=== PATIENT | female | born 1995 | race Caucasian/White ===

== ENCOUNTER → 2017-06-13 | Outpatient (REF) | payer OTHER, MEDICAID ==
[2017-06-13 22:08] LABS: CHLAMYDIA DNA AMPLIFICATION NEGATIVE (NEGATIVE); GC DNA AMPLIFICATION NEGATIVE (NEGATIVE)
== END ==
LOC: M LAB REF 17:22
DX: Z00.01 Encounter for general adult medical examination with abnormal findings (principal)

== ENCOUNTER → 2017-06-16 | Outpatient (REF) | payer OTHER, MEDICAID ==
[2017-06-16 13:24] LABS: BASO # 0.1 10^3/uL (0.0-0.2); BASO % 0.7 % (0.0-1.0); EOS # 0.9 10^3/uL (0.0-0.50); EOS % 9.3 % (0.0-3.0); HEMATOCRIT 42.4 % (36.0-47.0); HEMOGLOBIN 14.2 g/dl (12.0-16.0); IMMATURE GRANULOCYTE % 0.3 % (0-0); LYMPH # 2.4 10^3/uL (1.5-6.5); LYMPH % 25.4 % (24.0-44.0); MEAN CORPUSCULAR HEMOGLOBIN 30.9 pg (27.0-33.0); MEAN CORPUSCULAR HGB CONC 33.5 g/dl (32.0-36.5); MEAN CORPUSCULAR VOLUME 92.4 fl (80.0-96.0); MONO # 0.7 10^3/uL (0.0-0.8); MONO % 7.5 % (0.0-5.0); NEUTROPHILS # 5.4 10^3/uL (1.8-7.7); NEUTROPHILS % 56.8 % (36.0-66.0); PLATELET COUNT, AUTOMATED 312 10^3/uL (150-450); RED BLOOD COUNT 4.59 10^6/uL (4.00-5.40); RED CELL DISTRIBUTION WIDTH 13.1 % (11.5-14.5); WHITE BLOOD COUNT 9.6 10^3/uL (4.0-10.0)
[2017-06-16 13:44] LABS: ALBUMIN 4.1 GM/DL (3.2-5.2); ALBUMIN/GLOBULIN RATIO 1.21 (1.00-1.93); ALKALINE PHOSPHATASE 64 U/L (45-117); ALT/SGPT 20 U/L (12-78); ANION GAP 8 MEQ/L (8-16); AST/SGOT 13 U/L (7-37); BILIRUBIN,TOTAL 0.2 MG/DL (0.2-1.0); BLOOD UREA NITROGEN 11 MG/DL (7-18); CALCIUM LEVEL 9.1 MG/DL (8.5-10.1); CARBON DIOXIDE LEVEL 25 MEQ/L (21-32); CHLORIDE LEVEL 109 MEQ/L (98-107); CREATININE FOR GFR 0.72 MG/DL (0.55-1.02); FERRITIN 37 NG/ML (8-252); GLOMERULAR FILTRATION RATE > 60.0 (>60); GLUCOSE, FASTING 72 MG/DL (70-105); IRON (FE) 56 UG/DL (50-170); POTASSIUM SERUM 4.1 MEQ/L (3.5-5.1); SODIUM LEVEL 142 MEQ/L (136-145); TOTAL PROTEIN 7.5 GM/DL (6.4-8.2)
== END ==
LOC: M LAB REF 12:11
DX: R42 Dizziness and giddiness (principal); E61.1 Iron deficiency
CPT/HCPCS: 83540

== ENCOUNTER → 2018-10-02 | Outpatient (REF) | payer OTHER, MEDICAID ==
[2018-10-02 21:45] LABS: CHLAMYDIA DNA AMPLIFICATION NEGATIVE (NEGATIVE); GC DNA AMPLIFICATION NEGATIVE (NEGATIVE)
[2018-10-05 10:28] LABS: HEPATITIS B SURFACE ANTIBODY NEGATIVE (POSITIVE); HEPATITIS B SURFACE ANTIGEN NEGATIVE (NEGATIVE); HIV 1&2 SCREEN CENTAUR NEGATIVE (NEGATIVE)
== END ==
LOC: M LAB REF 18:26
PROVIDERS: ATTEND Family Medicine Addiction Medicine
DX: Z20.2 Contact with and (suspected) exposure to infections with a predominantly sexual mode of transmission (principal)

== ENCOUNTER → 2018-10-28 | Outpatient (REF) | payer OTHER, MEDICAID ==
[~2018-10-28] MED LIST: HYDR-3363; SERT-138
[2018-10-28 18:09] LABS: BASO # 0.1 10^3/uL (0.0-0.2); BASO % 0.7 % (0.0-1.0); EOS # 0.1 10^3/uL (0.0-0.50); EOS % 1.9 % (0.0-3.0); HEMATOCRIT 44.1 % (36.0-47.0); HEMOGLOBIN 14.3 g/dl (12.0-15.5); LYMPH # 2.2 10^3/uL (1.5-6.5); LYMPH % 31.7 % (24.0-44.0); MEAN CORPUSCULAR HEMOGLOBIN 31.2 pg (27.0-33.0); MEAN CORPUSCULAR HGB CONC 32.4 g/dl (32.0-36.5); MEAN CORPUSCULAR VOLUME 96.3 fl (80.0-96.0); MONO # 0.4 10^3/uL (0.0-0.8); MONO % 6.4 % (0.0-5.0); NEUTROPHILS # 4.1 10^3/uL (1.8-7.7); PLATELET COUNT, AUTOMATED 339 10^3/uL (150-450); RED BLOOD COUNT 4.58 10^6/uL (4.00-5.40); WHITE BLOOD COUNT 6.9 10^3/uL (4.0-10.0)
[2018-10-28 18:14] LABS: ALT/SGPT 18 U/L (12-78); BILIRUBIN,TOTAL 0.6 MG/DL (0.2-1.0); BLOOD UREA NITROGEN 12 MG/DL (7-18); CALCIUM LEVEL 9.1 MG/DL (8.5-10.1); CARBON DIOXIDE LEVEL 29 MEQ/L (21-32); CHLORIDE LEVEL 108 MEQ/L (98-107); CREATININE FOR GFR 0.93 MG/DL (0.55-1.30); GLOMERULAR FILTRATION RATE > 60.0 (>60); GLUCOSE, FASTING 83 MG/DL (70-100); POTASSIUM SERUM 4.1 MEQ/L (3.5-5.1); SODIUM LEVEL 142 MEQ/L (136-145); TOTAL PROTEIN 7.8 GM/DL (6.4-8.2)
== END ==
LOC: M LAB REF 17:45
PROVIDERS: ATTEND Nurse Practitioner Family
DX: Z12.4 Encounter for screening for malignant neoplasm of cervix (principal); R10.10 Upper abdominal pain, unspecified

== ENCOUNTER 2018-11-04 13:15 | Emergency (ER) | payer MEDICAID, OTHER ==
[~2018-11-04] VITALS: Ht 160 cm; Wt 68.2 kg
[2018-11-04] MEDS ORDERED: HYDR-3363 (13:26)
[2018-11-04] MEDS ORDERED: SERT-138 (13:26)
[2018-11-04 16:22] LABS: HEMATOCRIT 46.9 % (36.0-47.0); HEMOGLOBIN 15.4 g/dl (12.0-15.5); MEAN CORPUSCULAR HEMOGLOBIN 31.2 pg (27.0-33.0); MEAN CORPUSCULAR HGB CONC 32.8 g/dl (32.0-36.5); MEAN CORPUSCULAR VOLUME 94.9 fl (80.0-96.0); PLATELET COUNT, AUTOMATED 325 10^3/uL (150-450); RED BLOOD COUNT 4.94 10^6/uL (4.00-5.40); WHITE BLOOD COUNT 10.4 10^3/uL (4.0-10.0)
[2018-11-04] MEDS ORDERED: NS 1,000 ML IV ONE (16:30)
[2018-11-04 16:55] LABS: FREE THYROXINE INDEX 3.6 % (1.3-4.8); THYROID STIMULATING HORMONE 1.11 uIU/ML (0.358-3.740); THYROXINE (T4) 10.1 UG/DL (4.5-12.0)
--- NOTE | 2018-11-04 17:36 | REP ---
Clinical: Syncope . Comparison: None . Technique: PA and lateral. Findings: The mediastinum and cardiac silhouette are normal. The lung sands are clear and without acute consolidation, effusion, or pneumothorax. The skeletal structures are intact and normal. Impression: 1. No acute cardiopulmonary process. Electronically Signed by Zoltan King MD 11/04/2018 05:27 P
[2018-11-04 18:28] VITALS: BP 108/57
--- NOTE | 2018-11-04 19:58 | ECGEPIP ---
[facility] - ED Test Date: 2018-11-04 Pat Name: BORIS MONSALVE Department: Room: - Gender: Female Technical Project Manager: : 1995 Requested By: BRITTNY JAMA PA-C. Order Number: [id number] Reading MD: Jacobo Lees Measurements Intervals Anthony Rate: 54 P: 63 OR: 129 QRS: 69 QRSD: 91 T: 54 QT: 394 QTc: 374 Interpretive Statements SINUS BRADYCARDIA WITH sinus arrythmia Comparison tracing not on file Electronically Signed on 11-04-2018 19:58:21 EDT by Jacobo Lees
== END 2018-11-04 18:46 | disposition home or self-care (01) ==
LOC: M ED 13:15
DX: I95.1 Orthostatic hypotension (principal); E86.0 Dehydration; R00.1 Bradycardia, unspecified; F41.9 Anxiety disorder, unspecified; F32.9 Major depressive disorder, single episode, unspecified; Z79.899 Other long term (current) drug therapy

== ENCOUNTER 2019-02-11 15:30 | Emergency (ER) | payer OTHER ==
[2019-02-11 16:11] LABS: BASO # 0.1 10^3/uL (0.0-0.2); BASO % 0.6 % (0.0-1.0); EOS # 0.4 10^3/uL (0.0-0.5); EOS % 4.9 % (0.0-3.0); HEMATOCRIT 40.1 % (36.0-47.0); HEMOGLOBIN 12.9 g/dl (12.0-15.5); LYMPH # 2.2 10^3/uL (1.5-5.0); LYMPH % 27.3 % (24.0-44.0); MEAN CORPUSCULAR HEMOGLOBIN 30.4 pg (27.0-33.0); MEAN CORPUSCULAR HGB CONC 32.2 g/dl (32.0-36.5); MEAN CORPUSCULAR VOLUME 94.4 fl (80.0-96.0); MONO # 0.6 10^3/uL (0.0-0.8); MONO % 7.2 % (0.0-5.0); NEUTROPHILS # 4.8 10^3/uL (1.5-8.5); NEUTROPHILS % 59.7 % (36.0-66.0); PLATELET COUNT, AUTOMATED 265 10^3/uL (150-450); RED BLOOD COUNT 4.25 10^6/uL (4.00-5.40)
[2019-02-11 16:36] LABS: ALBUMIN 3.6 GM/DL (3.2-5.2); ALT/SGPT 17 U/L (12-78); BILIRUBIN,DIRECT 0.1 MG/DL (0.0-0.2); BILIRUBIN,TOTAL 0.6 MG/DL (0.2-1.0); BLOOD UREA NITROGEN 10 MG/DL (7-18); C REACTIVE PROTEIN QUANTITATIV < 0.30 MG/DL (0.00-0.30); CALCIUM LEVEL 8.8 MG/DL (8.5-10.1); CARBON DIOXIDE LEVEL 28 MEQ/L (21-32); CHLORIDE LEVEL 109 MEQ/L (98-107); CREATININE FOR GFR 0.72 MG/DL (0.55-1.30); GLOMERULAR FILTRATION RATE > 60.0 (>60); GLUCOSE, FASTING 74 MG/DL (70-100); HCG, SERUM QUANTITATIVE < 1.0 MIU/ML; SODIUM LEVEL 140 MEQ/L (136-145); THYROID STIMULATING HORMONE 0.896 uIU/ML (0.358-3.740); TOTAL PROTEIN 6.8 GM/DL (6.4-8.2)
[2019-02-11] MEDS ORDERED: NS 1,000 ML IV ONE (17:00)
[2019-02-11] MEDS ORDERED: FLUDROCORTISONE ACETATE 0.1 MG TAB PO ONE (17:30)
[2019-02-11 17:33] LABS: AMPHETAMINES LEVEL URINE NEGATIVE (NEGATIVE); BARBITURATES URINE NEGATIVE (NEGATIVE); BENZODIAZEPINES URINE NEGATIVE (NEGATIVE); CANNABINOIDS URINE NEGATIVE (NEGATIVE); COCAINE METABOLITE URINE NEGATIVE (NEGATIVE); METHADONE URINE NEGATIVE (NEGATIVE); OPIATES URINE NEGATIVE (NEGATIVE); PHENCYCLIDINE URINE NEGATIVE (NEGATIVE)
[2019-02-11] MEDS ORDERED: FLUD0.1T PO (19:14)
[2019-02-11 19:30] VITALS: BP 102/74
--- NOTE | 2019-02-12 07:11 | ECGEPIP ---
[facility] - ED Test Date: 2019-02-11 Pat Name: BORIS MONSALVE Department: Room: - Gender: Female Welder/Fitter: brian : 1995 Requested By: Juan Rose Order Number: [id number] Reading MD: Juan Johnson Measurements Intervals E[place] Rate: 62 P: 59 LA: 136 QRS: 48 QRSD: 89 T: 40 QT: 395 QTc: 404 Interpretive Statements SINUS RHYTHM WITH SINUS ARRHYTHMIA BENIGN EARLY REPOLARIZATION SIMILAR TO 11/04/18 Electronically Signed on 02-12-2019 7:11:05 EDT by Juan Johnson
== END 2019-02-11 20:04 | disposition home or self-care (01) ==
LOC: M ED 15:30 → EDBD 15:30 → M ED 20:04
DX: I95.1 Orthostatic hypotension (principal); G90.9 Disorder of the autonomic nervous system, unspecified; F41.9 Anxiety disorder, unspecified

== ENCOUNTER → 2019-05-03 | Outpatient (REF) | payer OTHER, MEDICAID ==
[~2019-05-03] MED LIST changes: +FLUD0.1T PO
[2019-05-03 20:25] LABS: BASO # 0.1 10^3/uL (0.0-0.2); BASO % 0.8 % (0.0-1.0); EOS # 0.3 10^3/uL (0.0-0.5); EOS % 2.4 % (0.0-3.0); HEMATOCRIT 43.6 % (36.0-47.0); HEMOGLOBIN 13.8 g/dl (12.0-15.5); LYMPH # 2.2 10^3/uL (1.5-5.0); LYMPH % 20.3 % (24.0-44.0); MEAN CORPUSCULAR HGB CONC 31.7 g/dl (32.0-36.5); MONO # 0.7 10^3/uL (0.0-0.8); MONO % 6.2 % (0.0-5.0); NEUTROPHILS # 7.6 10^3/uL (1.5-8.5); PLATELET COUNT, AUTOMATED 315 10^3/uL (150-450); RED BLOOD COUNT 4.45 10^6/uL (4.00-5.40); WHITE BLOOD COUNT 10.8 10^3/uL (4.0-10.0)
[2019-05-03 20:31] LABS: HCG, SERUM QUALITATIVE NEGATIVE (NEGATIVE)
[2019-05-03 20:37] LABS: ALBUMIN 3.9 GM/DL (3.2-5.2); ALT/SGPT 21 U/L (12-78); BILIRUBIN,TOTAL 0.3 MG/DL (0.2-1.0); BLOOD UREA NITROGEN 16 MG/DL (7-18); CARBON DIOXIDE LEVEL 28 MEQ/L (21-32); CHLORIDE LEVEL 108 MEQ/L (98-107); CREATININE FOR GFR 0.81 MG/DL (0.55-1.30); GLOMERULAR FILTRATION RATE > 60.0 (>60); GLUCOSE, FASTING 78 MG/DL (70-100); POTASSIUM SERUM 3.9 MEQ/L (3.5-5.1); SODIUM LEVEL 142 MEQ/L (136-145); THYROID STIMULATING HORMONE 0.947 uIU/ML (0.358-3.740); TOTAL PROTEIN 7.3 GM/DL (6.4-8.2)
[2019-05-03 21:18] LABS: HIV 1&2 SCREEN CENTAUR NEGATIVE (NEGATIVE)
[2019-05-04 09:46] LABS: CHLAMYDIA DNA AMPLIFICATION NEGATIVE (NEGATIVE); GC DNA AMPLIFICATION NEGATIVE (NEGATIVE)
== END ==
LOC: M LAB REF 18:55
PROVIDERS: ATTEND Nurse Practitioner Adult Health
DX: N92.1 Excessive and frequent menstruation with irregular cycle (principal)

== ENCOUNTER → 2020-08-09 | Outpatient (CLI) | payer OTHER, MEDICAID ==
[2020-08-09 12:10] LABS: HEMATOCRIT 34.7 % (36.0-47.0); MEAN CORPUSCULAR HEMOGLOBIN 30.2 pg (27.0-33.0); MEAN CORPUSCULAR HGB CONC 31.7 g/dl (32.0-36.5); MEAN CORPUSCULAR VOLUME 95.3 fl (80.0-96.0); PLATELET COUNT, AUTOMATED 326 10^3/uL (150-450); RED BLOOD COUNT 3.64 10^6/uL (4.00-5.40); WHITE BLOOD COUNT 13.9 10^3/uL (4.0-10.0)
== END ==
LOC: M LAB 10:18
PROVIDERS: ATTEND Advanced Practice Midwife
DX: Z34.82 Encounter for supervision of other normal pregnancy, second trimester (principal); Z3A.00 Weeks of gestation of pregnancy not specified

== ENCOUNTER → 2020-10-12 | Outpatient (REF) | payer OTHER, MEDICAID | LOC: M LAB REF 16:20 | PROVIDERS: ATTEND Advanced Practice Midwife | DX: Z34.83 Encounter for supervision of other normal pregnancy, third trimester (principal) ==

== ENCOUNTER 2021-02-04 09:11 | Emergency (ER) | payer MEDICAID, OTHER ==
[~2021-02-04] VITALS: Ht 160 cm; Wt 72.1 kg
[2021-02-04] MEDS ORDERED: ONDANSETRON 4MG/2ML VIAL IV ONE (10:45)
[2021-02-04] MEDS ORDERED: NS 1,000 ML IV ONE (10:45)
[2021-02-04 11:06] LABS: BASO % 0.2 % (0.0-1.0); HEMATOCRIT 43.6 % (36.0-47.0); HEMOGLOBIN 13.7 g/dl (12.0-15.5); LYMPH # 0.8 10^3/uL (1.5-5.0); LYMPH % 4.9 % (24.0-44.0); MEAN CORPUSCULAR HEMOGLOBIN 27.4 pg (27.0-33.0); MEAN CORPUSCULAR HGB CONC 31.4 g/dl (32.0-36.5); MEAN CORPUSCULAR VOLUME 87.2 fl (80.0-96.0); MONO # 0.7 10^3/uL (0.0-0.8); MONO % 3.9 % (2.0-8.0); NEUTROPHILS # 14.9 10^3/uL (1.5-8.5); NEUTROPHILS % 90.5 % (36.0-66.0); PLATELET COUNT, AUTOMATED 378 10^3/uL (150-450); WHITE BLOOD COUNT 16.5 10^3/uL (4.0-10.0)
[2021-02-04 11:40] LABS: ALBUMIN 3.9 GM/DL (3.2-5.2); ALT/SGPT 38 U/L (12-78); BILIRUBIN,DIRECT 0.2 MG/DL (0.0-0.2); BILIRUBIN,TOTAL 0.5 MG/DL (0.2-1.0); BLOOD UREA NITROGEN 12 MG/DL (7-18); CALCIUM LEVEL 9.2 MG/DL (8.5-10.1); CARBON DIOXIDE LEVEL 26 MEQ/L (21-32); CHLORIDE LEVEL 108 MEQ/L (98-107); CREATININE FOR GFR 0.74 MG/DL (0.55-1.30); ETHYL ALCOHOL (ETHANOL) < 0.003 % (0.000-0.010); GLOMERULAR FILTRATION RATE > 60.0 (>60); GLUCOSE, FASTING 113 MG/DL (70-100); POTASSIUM SERUM 4.1 MEQ/L (3.5-5.1); SODIUM LEVEL 140 MEQ/L (136-145); TOTAL PROTEIN 7.7 GM/DL (6.4-8.2)
[2021-02-04 12:02] LABS: LIPASE 140 U/L (73-393)
[2021-02-04 12:47] VITALS: BP 124/62
[2021-02-04] MEDS ORDERED: ONDA4TAB6 PO (13:46)
[2021-02-21] MEDS ORDERED: PREN1CHW PO (13:28)
== END 2021-02-04 14:18 | disposition home or self-care (01) ==
LOC: M ED 09:11
DX: K80.20 Calculus of gallbladder without cholecystitis without obstruction (principal); F33.9 Major depressive disorder, recurrent, unspecified; F41.9 Anxiety disorder, unspecified
CPT/HCPCS: 76705; 80048; 80076; 81001; 82077; 83690; 84702; 85025; 87086; 96361; 96374; 99284; J2405

== ENCOUNTER → 2021-02-21 | Outpatient (CLI) | payer OTHER ==
[~2021-02-21] MED LIST changes: +ONDA4TAB6 PO; +PREN1CHW PO
== END ==
LOC: M LABSMTC 10:20
PROVIDERS: ATTEND Anesthesiology
DX: Z01.818 Encounter for other preprocedural examination (principal); Z11.52 Encounter for screening for COVID-19

== ENCOUNTER 2021-02-26 10:39 | Day surgery (SDC) | payer OTHER ==
[~2021-02-26] VITALS: Ht 160 cm; Wt 70.8 kg
[~2021-02-26 10:39] MED LIST changes: +LR 1,000 ML IV ONE
[2021-02-26] MEDS ORDERED: dexameTHASONE 4 MG/ML 1ML VIAL (J1100 PER 1MG) As Ordered ONE (11:35)
[2021-02-26] MEDS ORDERED: fentaNYL 100 MCG/2 ML INJECTION (J3010) As Ordered ONE ×2 (11:35→13:05)
[2021-02-26] MEDS ORDERED: MIDAZOLAM INJ 2MG/2ML VIAL (J2250 PER 1MG) As Ordered ONE (11:35)
[2021-02-26] MEDS ORDERED: ONDANSETRON 4MG/2ML VIAL As Ordered ONE (11:35)
[2021-02-26] MEDS ORDERED: ACETAMINOPHEN 1000MG 100ML IV BTL (OFIRMEV) (J0131 PER 10MG) As Ordered ONE (11:36)
[2021-02-26] MEDS ORDERED: propofoL 200 MG/20 ML VIAL As Ordered ONE (11:36)
[2021-02-26] MEDS ORDERED: SUGAMMADEX SODIUM 500 MG/5 ML VIAL (BRIDION) As Ordered ONE (11:36)
[2021-02-26] MEDS ORDERED: LIDOCAINE 2% 100MG/5ML SDV (FOR ANES.) As Ordered ONE (11:36)
[2021-02-26] MEDS ORDERED: ROCURONIUM BROMIDE 50 MG/5 ML VIAL As Ordered ONE (11:36)
[2021-02-26] MEDS ORDERED: BUPIVACAINE/EPIN 0.25% 30 ML VIAL As Ordered ONE (12:13)
[2021-02-26] MEDS ORDERED: PHENYLephrine 500MCG 5ML (100MCG/ML) SYRINGE As Ordered ONE (12:46)
[2021-02-26] MEDS ORDERED: LR 1,000 ML IV SCH (13:50)
[2021-02-26] MEDS ORDERED: ONDANSETRON 4MG/2ML VIAL IV PRN (13:50)
[2021-02-26] MEDS ORDERED: fentaNYL 100 MCG/2 ML INJECTION (J3010) IV PRN (13:50)
[2021-02-26] MEDS ORDERED: oxyCODONE 5MG TAB PO PRN (13:50)
[2021-02-26] MEDS ORDERED: NORCO, ANEXSIA 5/325MG TABLET (HYDROcodone/ACETAMINOPHEN) PO PRN (13:50)
--- NOTE | 2021-02-26 15:43 | RO ---
OPERATIVE NOTE DATE OF OPERATION: 02/26/2021 PREOPERATIVE DIAGNOSIS: Symptomatic cholelithiasis. POSTOPERATIVE DIAGNOSIS: Symptomatic cholelithiasis. PROCEDURE: Robotic cholecystectomy. SURGEON: Harrison Polanco DO ASSIST: Tia Ramirez ANESTHESIA: General. EBL: 5 mL. COMPLICATIONS: None. INDICATIONS FOR PROCEDURE: The patient is a 25-year-old female who presents with right upper quadrant pain and was found to have symptomatic cholelithiasis. Recommendation was to proceed with robotic cholecystectomy. Risks and benefits of the procedure, not limited to but including bleeding, infection, hernia, damage to surrounding structures, and need for further surgery were discussed in detail with the patient. Informed consent was obtained and procedure was planned. PROCEDURE: The patient was brought back to operating room 7. After sufficient sedation, the abdomen was sterilely prepped and draped. Next, time out was done to confirm proper patient and proper procedure. Following that, an 8 mm incision was made in left upper quadrant, Veress needle was inserted, and the abdomen was insufflated to 15 mmHg. The Veress needle was removed and an 8 mm Optiview port was used to gain access to the abdomen. Once the abdomen was entered, three more ports were placed, in the middle upper abdomen and one in right upper quadrant. Robot was docked to the ports. From the console, the fundus of the gallbladder was elevated up towards the right shoulder. Cystic duct and cystic artery were both easily identified, they were both doubly clipped and cut. The gallbladder was then removed from the gallbladder fossa using electrocautery. The gallbladder was placed inside of a 5 mm Endo Catch bag, and brought out through the right lateral port site. Once the gallbladder was removed the abdomen was examined to confirm hemostasis. The abdomen was desufflated. The skin incisions were closed with 4-0 Vicryl subcuticular sutures. The abdomen was cleaned and dried. Steri-Strips, 4 x 4, and tape were applied. This ended the procedure.
[2021-02-26 16:59] VITALS: BP 135/77
== END 2021-02-26 17:15 | disposition home or self-care (01) ==
LOC: M SDC 10:39
PROVIDERS: ATTEND Surgery
DX: K80.20 Calculus of gallbladder without cholecystitis without obstruction (principal); Z79.899 Other long term (current) drug therapy
CPT/HCPCS: 47562; 81025; 88304; J0131; J1100; J2250; J2370; J2405; J3010

== ENCOUNTER 2021-11-10 13:07 | Inpatient (IN) | payer OTHER ==
[~2021-11-10] VITALS: Ht 157.5 cm; Wt 73.9 kg
[~2021-11-10 13:07] MED LIST changes: -LR 1,000 ML IV ONE
[2021-11-10 13:54] LABS: BASO # 0.1 10^3/uL (0.0-0.2); BASO % 1.2 % (0.0-1.0); EOS # 0.6 10^3/uL (0.0-0.5); EOS % 8.4 % (0.0-3.0); HEMATOCRIT 42.1 % (36.0-47.0); HEMOGLOBIN 13.6 g/dl (12.0-15.5); LYMPH # 1.2 10^3/uL (1.5-5.0); LYMPH % 17.1 % (24.0-44.0); MEAN CORPUSCULAR HGB CONC 32.3 g/dl (32.0-36.5); MEAN CORPUSCULAR VOLUME 92.7 fl (80.0-96.0); MONO # 0.6 10^3/uL (0.0-0.8); MONO % 8.4 % (2.0-8.0); NEUTROPHILS # 4.4 10^3/uL (1.5-8.5); NEUTROPHILS % 64.8 % (36.0-66.0); PLATELET COUNT, AUTOMATED 322 10^3/uL (150-450); RED BLOOD COUNT 4.54 10^6/uL (4.00-5.40); WHITE BLOOD COUNT 6.8 10^3/uL (4.0-10.0)
[2021-11-10 14:21] LABS: BILIRUBIN,DIRECT 3.3 MG/DL (0.0-0.2); BILIRUBIN,TOTAL 4.1 MG/DL (0.2-1.0); TOTAL PROTEIN 7.5 GM/DL (6.4-8.2)
[2021-11-10] MEDS ORDERED: ONDANSETRON 4MG/2ML VIAL IV ONE (14:30)
[2021-11-10] MEDS ORDERED: NS 1,000 ML IV ONE (14:30)
[2021-11-10 14:51] LABS: C REACTIVE PROTEIN QUANTITATIV 0.72 MG/DL (0.00-0.30)
[2021-11-10] MEDS ORDERED: MORPHINE 2 MG/ML 1ML VIAL IV ONE ×2 (14:55→18:55)
[2021-11-10 14:59] LABS: ERYTHROCYTE SEDIMENTATION RATE 10 mm/hr (0-20)
[2021-11-10 16:06] LABS: RSV AMPLIFICATION NEGATIVE (NEGATIVE)
[2021-11-10] MEDS ORDERED: PIPERACILLIN/TAZOBACTAM SOD 3.375 GM in D5W MINI-BAG PLUS 50 ML IV ONE (19:05)
[2021-11-10] MEDS ORDERED: HOME MED LIST COMPLETE! XX SCH (19:25)
[2021-11-10] MEDS: NS 1,000 ML IV SCH (19:28)
[2021-11-10] MEDS ORDERED: ACETAMINOPHEN TAB 650MG DOSE (2X325MG) PO PRN (20:55)
[2021-11-10 22:25] VITALS: BP 115/76
[2021-11-10 22:33] VITALS: BP 115/76
[2021-11-10] MEDS: MORPHINE 2 MG/ML 1ML VIAL IV PRN (22:42)
[2021-11-11] MEDS: MORPHINE 2 MG/ML 1ML VIAL IV PRN (02:45)
[2021-11-11 05:31] VITALS: BP 113/75
[2021-11-11] MEDS: NS 1,000 ML IV SCH ×2 (05:43→10:40)
[2021-11-11] MEDS ORDERED: HEPARIN SOD (PORCINE) 5000UNITS/ML 1ML VIAL/SYRINGE SC SCH (06:00)
[2021-11-11] MEDS ORDERED: fentaNYL 100 MCG/2 ML INJECTION As Ordered ONE (06:52)
[2021-11-11] MEDS ORDERED: MIDAZOLAM INJ 2MG/2ML VIAL (J2250 PER 1MG) As Ordered ONE (06:52)
[2021-11-11] MEDS ORDERED: propofoL 200 MG/20 ML VIAL As Ordered ONE (06:53)
[2021-11-11] MEDS ORDERED: LIDOCAINE 2% 100MG/5ML SDV (FOR ANES.) As Ordered ONE (06:53)
[2021-11-11] MEDS ORDERED: ONDANSETRON 4MG/2ML VIAL As Ordered ONE (06:54)
[2021-11-11] MEDS ORDERED: SUGAMMADEX SODIUM 500 MG/5 ML VIAL (BRIDION) As Ordered ONE (06:54)
[2021-11-11] MEDS ORDERED: dexameTHASONE 4 MG/ML 1ML VIAL (J1100 PER 1MG) As Ordered ONE (06:54)
[2021-11-11] MEDS ORDERED: ROCURONIUM BROMIDE 50 MG/5 ML VIAL As Ordered ONE (06:54)
[2021-11-11 07:49] LABS: HEMATOCRIT 40.8 % (36.0-47.0); HEMOGLOBIN 12.8 g/dl (12.0-15.5); MEAN CORPUSCULAR HEMOGLOBIN 29.9 pg (27.0-33.0); MEAN CORPUSCULAR HGB CONC 31.4 g/dl (32.0-36.5); MEAN CORPUSCULAR VOLUME 95.3 fl (80.0-96.0); PLATELET COUNT, AUTOMATED 301 10^3/uL (150-450); RED BLOOD COUNT 4.28 10^6/uL (4.00-5.40); WHITE BLOOD COUNT 7.6 10^3/uL (4.0-10.0)
[2021-11-11] MEDS ORDERED: PIPERACILLIN/TAZOBACTAM SOD 3.375 GM in D5W MINI-BAG PLUS 50 ML IV SCH (08:00)
[2021-11-11 08:19] LABS: ALBUMIN 3.4 GM/DL (3.2-5.2); ALT/SGPT 659 U/L (12-78); BILIRUBIN,TOTAL 4.5 MG/DL (0.2-1.0); BLOOD UREA NITROGEN 7 MG/DL (7-18); CALCIUM LEVEL 8.9 MG/DL (8.5-10.1); CARBON DIOXIDE LEVEL 26 MEQ/L (21-32); CHLORIDE LEVEL 112 MEQ/L (98-107); CREATININE FOR GFR 0.75 MG/DL (0.55-1.30); GLOMERULAR FILTRATION RATE > 60.0 (>60); GLUCOSE, FASTING 78 MG/DL (70-100); POTASSIUM SERUM 4.1 MEQ/L (3.5-5.1); SODIUM LEVEL 144 MEQ/L (136-145); TOTAL PROTEIN 6.7 GM/DL (6.4-8.2)
[2021-11-11] MEDS ORDERED: ISOVUE-300 61% 50ML VIAL As Ordered ONE (08:37)
[2021-11-11] MEDS ORDERED: oxyCODONE 5MG TAB PO PRN ×2 (09:45→11:00)
[2021-11-11] MEDS ORDERED: ONDANSETRON 4MG/2ML VIAL IV PRN (09:45)
[2021-11-11] MEDS ORDERED: LR 1,000 ML IV SCH (09:45)
[2021-11-11] MEDS ORDERED: fentaNYL 100 MCG/2 ML INJECTION IV PRN (09:45)
[2021-11-11 10:30] VITALS: BP 108/70
[2021-11-11] MEDS: PIPERACILLIN/TAZOBACTAM SOD 3.375 GM in D5W MINI-BAG PLUS 50 ML IV SCH ×3 (10:41→20:47)
[2021-11-11 14:00] VITALS: BP 100/56
[2021-11-11 22:00] VITALS: BP 101/54
[2021-11-12] MEDS: PIPERACILLIN/TAZOBACTAM SOD 3.375 GM in D5W MINI-BAG PLUS 50 ML IV SCH ×2 (03:04→08:38)
[2021-11-12 05:34] VITALS: BP 103/62
[2021-11-12 08:26] LABS: BASO # 0.1 10^3/uL (0.0-0.2); BASO % 0.7 % (0.0-1.0); EOS # 0.3 10^3/uL (0.0-0.5); EOS % 4.3 % (0.0-3.0); HEMOGLOBIN 11.4 g/dl (12.0-15.5); LYMPH # 2.3 10^3/uL (1.5-5.0); MEAN CORPUSCULAR HEMOGLOBIN 29.9 pg (27.0-33.0); MEAN CORPUSCULAR HGB CONC 31.7 g/dl (32.0-36.5); MEAN CORPUSCULAR VOLUME 94.5 fl (80.0-96.0); MONO # 0.5 10^3/uL (0.0-0.8); MONO % 7.7 % (2.0-8.0); NEUTROPHILS # 3.8 10^3/uL (1.5-8.5); PLATELET COUNT, AUTOMATED 274 10^3/uL (150-450); RED BLOOD COUNT 3.81 10^6/uL (4.00-5.40)
[2021-11-12 08:43] LABS: ALBUMIN 3.1 GM/DL (3.2-5.2); ALT/SGPT 433 U/L (12-78); BILIRUBIN,TOTAL 1.3 MG/DL (0.2-1.0); BLOOD UREA NITROGEN 7 MG/DL (7-18); CARBON DIOXIDE LEVEL 26 MEQ/L (21-32); CHLORIDE LEVEL 110 MEQ/L (98-107); CREATININE FOR GFR 0.82 MG/DL (0.55-1.30); GLOMERULAR FILTRATION RATE > 60.0 (>60); GLUCOSE, FASTING 110 MG/DL (70-100); POTASSIUM SERUM 3.6 MEQ/L (3.5-5.1); SODIUM LEVEL 141 MEQ/L (136-145); TOTAL PROTEIN 6.7 GM/DL (6.4-8.2)
== END 2021-11-12 14:15 | disposition home or self-care (01) ==
LOC: M ED 13:07 → M ED INP 20:51 → ENRESERV 21:44 → M MS5PR 22:25
PROVIDERS: ADMIT Family Medicine; ATTEND Internal Medicine Nephrology
PROC: 0FC98ZZ Extirpation of Matter from Common Bile Duct, Via Natural or Artificial Opening Endoscopic (ICD-10-PCS; principal; 2021-11-11 09:30)
DX: K80.50 Calculus of bile duct without cholangitis or cholecystitis without obstruction (principal); R17 Unspecified jaundice; R10.9 Unspecified abdominal pain; Z90.49 Acquired absence of other specified parts of digestive tract

== ENCOUNTER → 2022-07-18 | Outpatient (REF) | payer OTHER ==
[2022-07-18 17:25] LABS: BASO # 0.1 10^3/uL (0.0-0.2); EOS # 0.6 10^3/uL (0.0-0.5); EOS % 7.5 % (0.0-3.0); HEMATOCRIT 41.9 % (36.0-47.0); HEMOGLOBIN 13.2 g/dl (12.0-15.5); LYMPH # 2.8 10^3/uL (1.5-5.0); LYMPH % 33.3 % (24.0-44.0); MEAN CORPUSCULAR HGB CONC 31.5 g/dl (32.0-36.5); MEAN CORPUSCULAR VOLUME 92.1 fl (80.0-96.0); MONO # 0.6 10^3/uL (0.0-0.8); MONO % 7.5 % (2.0-8.0); NEUTROPHILS # 4.2 10^3/uL (1.5-8.5); NEUTROPHILS % 50.5 % (36.0-66.0); PLATELET COUNT, AUTOMATED 353 10^3/uL (150-450); RED BLOOD COUNT 4.55 10^6/uL (4.00-5.40); WHITE BLOOD COUNT 8.3 10^3/uL (4.0-10.0)
[2022-07-18 18:04] LABS: ALBUMIN 4.2 G/DL (3.2-5.2); ALKALINE PHOSPHATASE 74 U/L (46-116); ALT/SGPT 17 U/L (7.0-40); AST/SGOT 16 U/L (<34); BILIRUBIN,TOTAL 0.2 MG/DL (0.3-1.2); BLOOD UREA NITROGEN 8 MG/DL (9-23); CALCIUM LEVEL 9.7 MG/DL (8.5-10.1); CARBON DIOXIDE LEVEL 27 MMOL/L (20-31); CHLORIDE LEVEL 105 MMOL/L (98-107); GLOMERULAR FILTRATION RATE > 60.0 (>60); GLUCOSE, FASTING 76 MG/DL (60-100); POTASSIUM SERUM 4.6 MMOL/L (3.5-5.1); SODIUM LEVEL 139 MMOL/L (136-145); TOTAL PROTEIN 7.2 G/DL (5.7-8.2)
== END ==
LOC: M LAB REF 16:40
PROVIDERS: ATTEND Nurse Practitioner Family
DX: R10.31 Right lower quadrant pain (principal)

== ENCOUNTER → 2022-08-08 | Outpatient (REF) | payer OTHER | LOC: M LAB REF 11:41 | PROVIDERS: ATTEND Nurse Practitioner Family | DX: Z98.890 Other specified postprocedural states (principal) ==

== ENCOUNTER → 2022-09-02 | Outpatient (REF) | payer OTHER ==
[2022-09-02 17:01] LABS: PERCENT SATURATION 14.8 % (13.2-45.0)
[2022-09-02 17:05] LABS: THYROID STIMULATING HORMONE 1.346 uIU/ML (0.55-4.78); TOTAL 25(OH) VITAMIN D 23.6 NG/ML (20.0-100.0)
== END ==
LOC: M LAB REF 16:24
PROVIDERS: ATTEND Pediatrics
DX: E61.1 Iron deficiency (principal); E55.9 Vitamin D deficiency, unspecified; F41.8 Other specified anxiety disorders

== ENCOUNTER → 2022-09-03 | Outpatient (CLI) | payer OTHER | LOC: M RAD 11:55 | PROVIDERS: ATTEND Nurse Practitioner Family | DX: R10.31 Right lower quadrant pain (principal) ==

== ENCOUNTER 2022-10-09 21:22 | Emergency (ER) | payer OTHER ==
[~2022-10-09] VITALS: Ht 160 cm; Wt 75.7 kg
[2022-10-09] MEDS ORDERED: PARO20TA4 PO (21:31)
[2022-10-09] MEDS ORDERED: HYDR-3363 PO (21:31)
[2022-10-10] MEDS ORDERED: ISOVUE-370 76% 100ML VIAL As Ordered ONE (04:16)
[2022-10-10 04:45] LABS: HEMATOCRIT 38.7 % (36.0-47.0); HEMOGLOBIN 12.6 g/dl (12.0-15.5); MEAN CORPUSCULAR HEMOGLOBIN 30.1 pg (27.0-33.0); MEAN CORPUSCULAR HGB CONC 32.6 g/dl (32.0-36.5); MEAN CORPUSCULAR VOLUME 92.4 fl (80.0-96.0); PLATELET COUNT, AUTOMATED 313 10^3/uL (150-450); RED BLOOD COUNT 4.19 10^6/uL (4.00-5.40); WHITE BLOOD COUNT 8.9 10^3/uL (4.0-10.0)
[2022-10-10 05:39] LABS: BLOOD UREA NITROGEN 11 MG/DL (9-23); CALCIUM LEVEL 9.3 MG/DL (8.5-10.1); CARBON DIOXIDE LEVEL 27 MMOL/L (20-31); CHLORIDE LEVEL 106 MMOL/L (98-107); CREATININE FOR GFR 0.84 MG/DL (0.55-1.30); GLOMERULAR FILTRATION RATE > 60.0 (>60); GLUCOSE, FASTING 94 MG/DL (60-100); POTASSIUM SERUM 3.4 MMOL/L (3.5-5.1); SODIUM LEVEL 139 MMOL/L (136-145)
[2022-10-10 05:41] LABS: HCG, SERUM QUALITATIVE NEGATIVE (NEGATIVE)
[2022-10-10 08:07] VITALS: BP 115/67
== END 2022-10-10 08:23 | disposition home or self-care (01) ==
LOC: M ED 21:22
DX: R07.9 Chest pain, unspecified (principal); F41.9 Anxiety disorder, unspecified; G90.A Postural orthostatic tachycardia syndrome [POTS]; Z79.899 Other long term (current) drug therapy
CPT/HCPCS: 71275; 80048; 84703; 85027; 93005; 93041; 94760; 99285; Q9967

== ENCOUNTER → 2023-01-31 | Outpatient (REF) | payer OTHER ==
[~2023-01-31] MED LIST changes: +HYDR-3363 PO; +PARO20TA4 PO
== END ==
LOC: M LAB REF 15:59
PROVIDERS: ATTEND Physician Assistant Medical
DX: B34.9 Viral infection, unspecified (principal); J02.9 Acute pharyngitis, unspecified

== ENCOUNTER → 2023-02-03 | Outpatient (REF) | LOC: M EMP 07:37 | PROVIDERS: ATTEND Family Medicine | DX: Z00.00 Encounter for general adult medical examination without abnormal findings (principal) ==

== ENCOUNTER → 2023-02-04 | Outpatient (REF) | LOC: M EMP 10:27 | PROVIDERS: ATTEND Family Medicine | DX: Z11.52 Encounter for screening for COVID-19 (principal) ==

== ENCOUNTER 2023-03-15 07:27 | Emergency (ER) | payer OTHER ==
[~2023-03-15] VITALS: Ht 160 cm; Wt 72.8 kg
[~2023-03-15 07:27] MED LIST changes: +AMOX500C PO
[2023-03-15 08:30] LABS: BASO # 0.1 10^3/uL (0.0-0.2); BASO % 0.7 % (0.0-1.0); EOS # 0.3 10^3/uL (0.0-0.5); EOS % 3.8 % (0.0-3.0); HEMOGLOBIN 13.4 g/dl (12.0-15.5); LYMPH # 1.5 10^3/uL (1.5-5.0); LYMPH % 20.7 % (24.0-44.0); MEAN CORPUSCULAR HEMOGLOBIN 29.7 pg (27.0-33.0); MEAN CORPUSCULAR HGB CONC 32.7 g/dl (32.0-36.5); MEAN CORPUSCULAR VOLUME 90.9 fl (80.0-96.0); MONO # 0.4 10^3/uL (0.0-0.8); MONO % 5.7 % (2.0-8.0); NEUTROPHILS # 5.1 10^3/uL (1.5-8.5); PLATELET COUNT, AUTOMATED 304 10^3/uL (150-450); RED BLOOD COUNT 4.51 10^6/uL (4.00-5.40); WHITE BLOOD COUNT 7.4 10^3/uL (4.0-10.0)
[2023-03-15 09:02] LABS: BLOOD UREA NITROGEN 10 MG/DL (9-23); CALCIUM LEVEL 9.2 MG/DL (8.5-10.1); CARBON DIOXIDE LEVEL 26 MMOL/L (20-31); CHLORIDE LEVEL 107 MMOL/L (98-107); CK-MB VALUE MASS < 1.0 NG/ML (<3.6); CPK CREATINE PHOSPHOKINASE 43 U/L (34-145); CREATININE FOR GFR 0.72 MG/DL (0.55-1.30); GLOMERULAR FILTRATION RATE > 60.0 (>60); GLUCOSE, FASTING 96 MG/DL (60-100); MB/CK RELATIVE INDEX 2.32 (< OR =4); POTASSIUM SERUM 4.5 MMOL/L (3.5-5.1); SODIUM LEVEL 139 MMOL/L (136-145)
[2023-03-15 09:15] LABS: HCG, SERUM QUALITATIVE NEGATIVE (NEGATIVE)
[2023-03-15] MEDS ORDERED: MECLIZINE 25 MG TABLET PO ONE (11:30)
[2023-03-15] MEDS ORDERED: NS 1,000 ML IV ONE (11:30)
[2023-03-15] MEDS ORDERED: ISOVUE-370 76% 100ML VIAL As Ordered ONE (11:42)
[2023-03-15 12:06] LABS: INR 1.02; PARTIAL THROMBOPLASTIN TIME 31.7 SECONDS (24.8-34.2); PROTHROMBIN TIME 13.1 SECONDS (12.5-14.5)
[2023-03-15 12:17] LABS: CK-MB VALUE MASS < 1.0 NG/ML (<3.6)
[2023-03-15 12:21] LABS: THYROID STIMULATING HORMONE 1.463 uIU/ML (0.55-4.78)
[2023-03-15 12:29] LABS: CPK CREATINE PHOSPHOKINASE 39 U/L (34-145); MB/CK RELATIVE INDEX 2.56 (< OR =4)
[2023-03-15] MEDS ORDERED: MECL-209 PO (13:53)
[2023-03-15 14:05] VITALS: BP 111/68; TEMP 98.8; O2SAT 98
== END 2023-03-15 14:29 | disposition home or self-care (01) ==
LOC: M ED 07:27
DX: R42 Dizziness and giddiness (principal); R07.89 Other chest pain; R53.1 Weakness; G90.A Postural orthostatic tachycardia syndrome [POTS]
CPT/HCPCS: 70450; 71046; 71275; 80048; 82550; 82553; 84443; 84703; 85025; 85610; 85730; 86618; 93005; 99284; Q9967

== ENCOUNTER 2023-03-18 17:01 | Emergency (ER) | payer OTHER ==
[~2023-03-18] VITALS: Ht 160 cm; Wt 73.6 kg
[~2023-03-18 17:01] MED LIST changes: +MECL-209 PO
[2023-03-18] MEDS ORDERED: FLUD0.1T PO (17:13)
[2023-03-18 17:41] LABS: BASO # 0.1 10^3/uL (0.0-0.2); BASO % 0.6 % (0.0-1.0); EOS # 0.5 10^3/uL (0.0-0.5); HEMATOCRIT 42.3 % (36.0-47.0); HEMOGLOBIN 13.7 g/dl (12.0-15.5); LYMPH # 2.5 10^3/uL (1.5-5.0); LYMPH % 25.7 % (24.0-44.0); MEAN CORPUSCULAR HEMOGLOBIN 29.5 pg (27.0-33.0); MEAN CORPUSCULAR HGB CONC 32.4 g/dl (32.0-36.5); MEAN CORPUSCULAR VOLUME 91.2 fl (80.0-96.0); MONO # 0.5 10^3/uL (0.0-0.8); MONO % 5.5 % (2.0-8.0); NEUTROPHILS # 6.1 10^3/uL (1.5-8.5); NEUTROPHILS % 62.9 % (36.0-66.0); PLATELET COUNT, AUTOMATED 327 10^3/uL (150-450); RED BLOOD COUNT 4.64 10^6/uL (4.00-5.40); WHITE BLOOD COUNT 9.7 10^3/uL (4.0-10.0)
[2023-03-18 17:54] LABS: INR 1.03; PROTHROMBIN TIME 13.2 SECONDS (12.5-14.5)
[2023-03-18 17:55] LABS: PARTIAL THROMBOPLASTIN TIME 31.7 SECONDS (24.8-34.2)
[2023-03-18 18:05] LABS: LIPASE 36 U/L (12-53)
[2023-03-18 18:08] LABS: ALKALINE PHOSPHATASE 72 U/L (46-116); ALT/SGPT 14 U/L (7.0-40); AST/SGOT < 8 U/L (<34); BILIRUBIN,DIRECT < 0.1 MG/DL (<0.4); BILIRUBIN,TOTAL 0.2 MG/DL (0.3-1.2); BLOOD UREA NITROGEN 7 MG/DL (9-23); CALCIUM LEVEL 9.6 MG/DL (8.5-10.1); CARBON DIOXIDE LEVEL 27 MMOL/L (20-31); CHLORIDE LEVEL 108 MMOL/L (98-107); CK-MB VALUE MASS < 1.0 NG/ML (<3.6); CPK CREATINE PHOSPHOKINASE 43 U/L (34-145); CREATININE FOR GFR 0.67 MG/DL (0.55-1.30); GLOMERULAR FILTRATION RATE > 60.0 (>60); GLUCOSE, FASTING 100 MG/DL (60-100); MB/CK RELATIVE INDEX 2.32 (< OR =4); POTASSIUM SERUM 3.8 MMOL/L (3.5-5.1); SODIUM LEVEL 141 MMOL/L (136-145); TOTAL PROTEIN 7.2 G/DL (5.7-8.2)
[2023-03-18 18:51] LABS: HCG, SERUM QUALITATIVE NEGATIVE (NEGATIVE)
[2023-03-18] MEDS ORDERED: ALPRAZolam 0.5 MG TAB PO ONE (20:45)
[2023-03-18] MEDS ORDERED: NS 1,000 ML IV ONE (21:00)
[2023-03-18] MEDS ORDERED: KETOROLAC 30 MG/ML 1ML VIAL IV ONE (21:00)
[2023-03-18 22:18] LABS: CK-MB VALUE MASS < 1.0 NG/ML (<3.6)
[2023-03-18 22:20] LABS: CPK CREATINE PHOSPHOKINASE 45 U/L (34-145); MB/CK RELATIVE INDEX 2.22 (< OR =4)
[2023-03-18 23:40] VITALS: BP 106/67; TEMP 97.9; O2SAT 100
== END 2023-03-18 23:46 | disposition home or self-care (01) ==
LOC: M ED 17:01
DX: G90.A Postural orthostatic tachycardia syndrome [POTS] (principal); F41.9 Anxiety disorder, unspecified; Z79.899 Other long term (current) drug therapy
CPT/HCPCS: 80048; 80076; 82550; 82553; 83690; 84703; 85025; 85610; 85730; 93005; 96374; 99284; J1885

== ENCOUNTER → 2023-04-03 | Outpatient (CLI) | payer OTHER | LOC: M EKG 14:38 | PROVIDERS: ATTEND Pediatrics | DX: I95.1 Orthostatic hypotension (principal) ==

== ENCOUNTER 2023-05-22 10:42 | Emergency (ER) | payer OTHER ==
[~2023-05-22] VITALS: Ht 157.5 cm; Wt 75.0 kg
[2023-05-22] MEDS ORDERED: NS 1,000 ML IV ONE (12:35)
[2023-05-22 12:59] LABS: BASO # 0.1 10^3/uL (0.0-0.2); BASO % 0.7 % (0.0-1.0); EOS # 0.3 10^3/uL (0.0-0.5); EOS % 3.7 % (0.0-3.0); HEMATOCRIT 37.8 % (36.0-47.0); HEMOGLOBIN 12.3 g/dl (12.0-15.5); LYMPH # 1.6 10^3/uL (1.5-5.0); LYMPH % 23.6 % (24.0-44.0); MEAN CORPUSCULAR HEMOGLOBIN 30.1 pg (27.0-33.0); MEAN CORPUSCULAR HGB CONC 32.5 g/dl (32.0-36.5); MEAN CORPUSCULAR VOLUME 92.6 fl (80.0-96.0); MONO # 0.5 10^3/uL (0.0-0.8); MONO % 6.5 % (2.0-8.0); NEUTROPHILS # 4.5 10^3/uL (1.5-8.5); NEUTROPHILS % 65.4 % (36.0-66.0); PLATELET COUNT, AUTOMATED 282 10^3/uL (150-450); RED BLOOD COUNT 4.08 10^6/uL (4.00-5.40)
[2023-05-22 13:12] LABS: INR 1.06; PROTHROMBIN TIME 13.5 SECONDS (12.5-14.5)
[2023-05-22 13:15] LABS: D-DIMER QUANT 1.11 ug/mL (<0.5)
[2023-05-22 13:24] LABS: CK-MB VALUE MASS < 1.0 NG/ML (<3.6)
[2023-05-22 13:26] LABS: CPK CREATINE PHOSPHOKINASE 58 U/L (34-145); MB/CK RELATIVE INDEX 1.72 (< OR =4)
[2023-05-22 13:27] LABS: BLOOD UREA NITROGEN 12 MG/DL (9-23); CALCIUM LEVEL 9.3 MG/DL (8.5-10.1); CARBON DIOXIDE LEVEL 26 MMOL/L (20-31); CHLORIDE LEVEL 110 MMOL/L (98-107); CREATININE FOR GFR 0.67 MG/DL (0.55-1.30); GLOMERULAR FILTRATION RATE > 60.0 (>60); GLUCOSE, FASTING 87 MG/DL (60-100); POTASSIUM SERUM 3.9 MMOL/L (3.5-5.1); SODIUM LEVEL 142 MMOL/L (136-145)
[2023-05-22 13:29] LABS: FREE T4 1.07 NG/DL (0.89-1.76)
[2023-05-22 13:30] LABS: RSV AMPLIFICATION NEGATIVE (NEGATIVE)
[2023-05-22] MEDS ORDERED: ISOVUE-370 76% 100ML VIAL As Ordered ONE (14:14)
[2023-05-22 15:09] VITALS: BP 102/70; TEMP 98.5; O2SAT 100
== END 2023-05-22 15:24 | disposition home or self-care (01) ==
LOC: EDBD 10:42 → M ED 10:42
DX: R55 Syncope and collapse (principal); G90.A Postural orthostatic tachycardia syndrome [POTS]; F31.9 Bipolar disorder, unspecified; F32.A Depression, unspecified; F40.10 Social phobia, unspecified
CPT/HCPCS: 70450; 70496; 70498; 71046; 80048; 82550; 82553; 83735; 84439; 84443; 84702; 85025; 85379; 85610; 85730; 87631; 93005; 93041; 94760; 96360; 96361; 99285; Q9967

== ENCOUNTER → 2024-05-18 | Outpatient (REF) | payer OTHER ==
[~2024-05-18] MED LIST changes: +ONDA-282 PO; -ONDA4TAB6 PO
== END ==
LOC: M LAB REF 21:30
PROVIDERS: ATTEND Physician Assistant
DX: B34.9 Viral infection, unspecified (principal)

== ENCOUNTER → 2024-10-18 | Outpatient (REF) | payer OTHER ==
[2024-10-18 18:19] LABS: ALBUMIN 4.1 G/DL (3.2-5.2); ALKALINE PHOSPHATASE 76 U/L (35-104); ALT/SGPT 21 U/L (7.0-40); AST/SGOT 10 U/L (<34); BILIRUBIN,TOTAL 0.2 MG/DL (0.3-1.2); BLOOD UREA NITROGEN 13 MG/DL (9-23); CALCIUM LEVEL 9.7 MG/DL (8.5-10.1); CARBON DIOXIDE LEVEL 26 MMOL/L (20-31); CHLORIDE LEVEL 108 MMOL/L (98-107); CHOLESTEROL LEVEL 155 MG/DL (<200); CHOLESTEROL RISK RATIO 3.83 (<5); CREATININE FOR GFR 0.65 MG/DL (0.55-1.30); GLOMERULAR FILTRATION RATE > 90.0 (>60); GLUCOSE, FASTING 83 MG/DL (60-100); HDL CHOLESTEROL 40.4 MG/DL (>40); LDL CHOLESTEROL 67.2 MG/DL (<100); NON-HDL-C 114.6 MG/DL; POTASSIUM SERUM 4.2 MMOL/L (3.5-5.1); SODIUM LEVEL 143 MMOL/L (136-145); TOTAL PROTEIN 7.6 G/DL (5.7-8.2); TRIGLYCERIDES LEVEL 237 MG/DL (<150)
[2024-10-18 18:25] LABS: THYROID STIMULATING HORMONE 1.718 uIU/ML (0.55-4.78)
[2024-10-18 18:26] LABS: HCG, SERUM QUALITATIVE NEGATIVE (NEGATIVE)
[2024-10-18 18:45] LABS: HEMOGLOBIN A1c 5.1 % (4.0-6.0)
== END ==
LOC: M LAB REF 17:39
PROVIDERS: ATTEND Pediatrics
DX: E66.811 Obesity, class 1 (principal); Z72.51 High risk heterosexual behavior